=== PATIENT | male | born 1970 | race African-American/Black ===

== ENCOUNTER → 2025-03-06 | Outpatient (CLI) | payer OTHER ==
[~2025-03-06] MED LIST: ATARAX,VISTARIL50 MG PO; Coumadin10 MG PO; INVEGA6 MG PO; NEOSPORIN OINT15 GM T; SERTRALINE HYD100 MG PO; SMZ-TMP 400 MG-1 TAB PO; VITAMIN D50000 I3 PO
== END | disposition home or self-care (01) ==
LOC: WOUNDCARE 11:01
PROVIDERS: ATTEND Nurse Practitioner Family
DX: I83.013 Varicose veins of right lower extremity with ulcer of ankle (principal); L97.312 Non-pressure chronic ulcer of right ankle with fat layer exposed; I87.2 Venous insufficiency (chronic) (peripheral); I10 Essential (primary) hypertension; I73.9 Peripheral vascular disease, unspecified; E78.5 Hyperlipidemia, unspecified; F31.9 Bipolar disorder, unspecified; F14.20 Cocaine dependence, uncomplicated; F17.200 Nicotine dependence, unspecified, uncomplicated; Z95.1 Presence of aortocoronary bypass graft; Z86.73 Personal history of transient ischemic attack (TIA), and cerebral infarction without residual deficits; Z86.718 Personal history of other venous thrombosis and embolism